=== PATIENT | male | born 1970 | race Two or more races ===

== ENCOUNTER 2016-09-28 12:45 | Emergency (ER) | payer OTHER ==
[~2016-09-28] VITALS: Ht 170.2 cm; Wt 99.8 kg
[2016-09-28 13:29] LABS: ANION GAP 10 (5-14); CALCIUM, SERUM 8.8 mg/dL (8.5-10.1); CARBON DIOXIDE 30 mmol/L (21-32); CHLORIDE 102 mmol/L (98-107); GFR 80 mL/min (>60); GLUCOSE 98 mg/dL (74-106); SODIUM SERUM 138 mmol/L (136-145); UREA NITROGEN, BLOOD 14 mg/dL (7-18)
[2016-09-28 13:33] LABS: BASOPHILS % (AUTO) 0.5 % (0.0-2.0); DIFF TOTAL % 100 %; EOSINOPHILS % (AUTO) 0.7 % (0.0-6.0); HEMATOCRIT 44 % (39-51); LYMPHOCYTES # (AUTO) 1.6 /CMM (0.8-4.8); LYMPHOCYTES % (AUTO) 23.8 % (20.0-44.0); MEAN CORPUSCULAR HEMOGLOBIN 31 PG (26.0-33.0); MEAN CORPUSCULAR HGB CONC 34 g/dl (31.0-36.0); MEAN CORPUSCULAR VOLUME 90 fL (80-96); MONOCYTES # (AUTO) 0.3 /CMM (0.1-1.30); MONOCYTES % (AUTO) 4.6 % (2.0-12.0); NEUTROPHILS # (AUTO) 4.8 /CMM (1.8-8.9); NEUTROPHILS % (AUTO) 70.4 % (43.0-81.0); PLATELET COUNT (AUTO) 247 /CMM (150-450); RED BLOOD CELL COUNT(AUTO) 4.89 MIL/uL (4.5-6.0); WHITE BLOOD COUNT (AUTO) 6.8 K/uL (4.3-11.0)
[2016-09-28 13:38] LABS: TROPONIN I < 0.017 ng/mL (0.00-0.056)
[2016-09-28 13:39] LABS: PROTHROMBIN TIME 10.5 SECS (9.5-12.7)
[2016-09-28] MEDS ORDERED: MECLIZINE HCL 25 MG TABLET ONE (13:52)
[2016-09-28] MEDS ORDERED: MECLIZINE HCL 12.5 MG TABLET PO ONE (14:00)
[2016-09-28 15:01] VITALS: BP 120/80
== END 2016-09-28 15:01 | disposition home or self-care (01) ==
LOC: ER 12:49
DX: R53.1 Weakness (principal); I10 Essential (primary) hypertension; R42 Dizziness and giddiness; R79.1 Abnormal coagulation profile; B34.9 Viral infection, unspecified
CPT/HCPCS: 36415; 71010; 80048; 84484; 85025; 85730; 93005; 99285; A4606; J8597; Z7610